=== PATIENT | male | born 1970 | race Hispanic/Latino ===

== ENCOUNTER → 2019-09-20 | Outpatient (CLI) | payer OTHER ==
--- NOTE | 2019-09-23 09:01 | Diagnostic Imaging Report ---
TECHNIQUE: Magnetic resonance imaging of the right forearm was performed WITHOUT injected contrast, on a 1.5 janett magnet. HISTORY: Pain COMPARISON: None available. FINDINGS: Bone marrow signal is normal. No fracture or edema. A soft tissue marker placed over the region of the radial dorsal forearm. No concerning soft tissue mass in this region. In this location proximal intersection syndrome can occur, however no edema between the first and second extensor compartments. The soft tissues are unremarkable. IMPRESSION: No concerning soft tissue mass or other abnormality visualized. Signed by: Dr. Oleg Green M.D. on 09/23/2019 8:59 AM
== END ==
LOC: MRI 14:49
PROVIDERS: ATTEND Specialist
DX: R22.31 Localized swelling, mass and lump, right upper limb (principal)

== ENCOUNTER 2024-06-29 12:14 | Emergency (ER) | payer BC ==
[~2024-06-29] VITALS: Ht 167.6 cm; Wt 83.5 kg
[2024-06-29 12:20] VITALS: PULSE 85; RESP 16; TEMP 97.8; O2SAT 100
[2024-06-29 13:14] LABS: BASOPHILS % 0.4 % (0.0-1.0); EOSINOPHILS % 0.2 % (0.0-6.0); HEMATOCRIT 45.9 % (38.2-49.6); HEMOGLOBIN 15.3 g/dL (14.0-18.0); LYMPHOCYTES # (AUTO) 1.9 (1.0-3.2); LYMPHOCYTES % 16.9 % (18.0-39.1); MEAN CORPUSCULAR HGB CONC 33.3 g/dL (31-35); MEAN CORPUSCULAR VOLUME 92.9 fL (81-99); MONOCYTES # (AUTO) 0.7 (0.2-0.8); MONOCYTES % 6.5 % (4.4-11.3); NEUTROPHILS # (AUTO) 8.6 (2.1-6.9); NEUTROPHILS % 75.6 % (38.7-80.0); PLATELET COUNT 151 x10e3/uL (140-360); RED BLOOD COUNT 4.94 x10e6/uL (4.3-5.7); RED CELL DISTRIBUTION WIDTH 12.4 % (11.7-14.4); WHITE BLOOD COUNT 11.39 x10e3/uL (4.8-10.8)
[2024-06-29 13:37] LABS: ALBUMIN 4.2 g/dL (3.5-5.0); ALBUMIN/GLOBULIN RATIO 1.1 (0.8-2.0); ANION GAP 16.5 mmol/L (8-16); BILIRUBIN,TOTAL 0.7 mg/dL (0.2-1.2); CREATININE, SERUM 0.86 mg/dL (0.72-1.25); POTASSIUM 4.5 mmol/L (3.5-5.1)
[2024-06-29] MEDS: SODIUM CHLORIDE 0.9% 1000ML 1,000 ML IV STA (13:39)
[2024-06-29] MEDS: KETOROLAC TROMETHAMINE 30 MG/ML VIAL IV STA (13:39)
[2024-06-29] MEDS ORDERED: IOPAMIDOL 370 MG/ML 100 ML INFUS..BTL INJ ONE (21:37)
== END 2024-06-29 15:03 | disposition home or self-care (01) ==
LOC: ER 12:30
DX: K62.89 Other specified diseases of anus and rectum (principal); K64.8 Other hemorrhoids; E78.5 Hyperlipidemia, unspecified
CPT/HCPCS: 36415; 74177; 80053; 85025; 99284; J1885; J7030; Q9967